=== PATIENT | female | born 1940 | race Caucasian/White ===

== ENCOUNTER 2017-02-16 08:35 | Day surgery (SDC) | payer MEDICARE, OTHER ==
[~2017-02-16 08:35] MED LIST: ASPIRIN 81MG TA81 MG PO; BENICAR20 MG PO; CALCIUM CARBON600 MG PO; LOSARTAN POTASS1 TAB PO; NAPROSYN500 M1 PO; PREDNISONE1 MG PO; VITAMIN D1000 IU PO
--- NOTE | 2017-02-16 10:18 | Operative Note ---
Colonoscopy ([facility]) Procedure date: 02/16/17 Date of : 44 Procedure:Colonoscopy Colonoscopy with cold snare polypectomy and cold biopsy Indications: Mrs. Judge is a 77-year-old female who is here for follow-up screening/ surveillance colonoscopy. Her last colonoscopy 10 years ago with co was normal. She reports no abdominal pain, weight loss, change in her bowel habits or rectal bleeding. She reports no family history of colon cancer. Performing Provider: Katarina Tom MD Referrring Provider: Alex Gonzales M.D. Sedation: Fentanyl 200 mg IV/Versed 7 mg IV Procedure: Prior to the procedure, a history and physical exam was performed, and patient medications and allergies were reviewed. The risks and benefits of the procedure and the sedation options and risks were discussed with the patient. All questions were answered and informed consent was obtained. Patient identification and proposed procedure were verified by the physician and the nurse. The patient was placed in a left lateral decubitus position. Throughout the procedure, the patient's blood pressure, pulse, and oxygen saturations were monitored continuously. Findings: On digital rectal examination there was normal rectal tone. There were no external hemorrhoids. The colonoscope was introduced through the anal canal to the rectum and advanced to the cecum. The ileocecal valve and appendiceal orifice were identified. The scope was advanced a short distance into the ileum which appeared grossly normal. The scope was then withdrawn into the colon. There were 2 diminutive colon polyps identified in the transverse and descending. These ranged in size from 4-5 mm and were all removed via cold snare polypectomy. There were scattered diverticuli throughout the descending and sigmoid colon (LEFT colon). There was a superficial ulceration in one of the diverticulum in the sigmoid colon suggestive of mild chronic sigmoid diverticulitis or diverticular associated colitis which was very minimal and isolated to a single diverticulum. The rectum itself was normal. Upon retroflexion within the rectum there were grade 1 internal hemorrhoids. Impressions: 1. Diminutive colonic polyps 2 2. Left-sided diverticulosis 3. Grade 1 internal hemorrhoids Recommendations: I will follow up the polyp pathology and recommend repeat colonoscopy again in 5 years based upon the polyp histology. I would encourage fiber supplementation on a long-term daily maintenance basis. Complications: None EBL (ml): 0 at 1018
[2017-02-16 13:59] VITALS: BP 116/69
== END 2017-02-16 11:10 | disposition home or self-care (01) ==
LOC: SDC 08:35
PROVIDERS: Internal Medicine Gastroenterology
PROC: 0DBM8ZX Excision of Descending Colon, Via Natural or Artificial Opening Endoscopic, Diagnostic (ICD-10-PCS; 2017-02-16)
PROC: 0DBL8ZX Excision of Transverse Colon, Via Natural or Artificial Opening Endoscopic, Diagnostic (ICD-10-PCS; principal; 2017-02-16 13:00)
DX: D12.3 Benign neoplasm of transverse colon (principal); D12.4 Benign neoplasm of descending colon; K57.30 Diverticulosis of large intestine without perforation or abscess without bleeding; K64.0 First degree hemorrhoids